=== PATIENT | male | born 1955 | race Caucasian/White ===

== ENCOUNTER 2016-09-29 15:28 | Emergency (ER) | payer OTHER ==
[~2016-09-29] VITALS: Ht 190.5 cm; Wt 109.1 kg
[~2016-09-29 15:28] MED LIST: ASPI325T32 PO; INDO25CA PO; OXYC5TAB72 PO
[2016-09-29 15:35] VITALS: BP 103/75; PULSE 90; RESP 18; O2SAT 99
[2016-09-29 15:53] VITALS: BP 123/73; PULSE 91; RESP 16; O2SAT 99
--- NOTE | 2016-09-29 16:31 | ED.REPORT ---
HPI-General Illness Date of Service Sep 29, 2016 ED Provider: Latrell Livingston MD Pt is a 60 y/o healthy male presenting to the ED from his PCP's office with multiple vague complaints onset today. The pt was planning to see his PCP Dr. Alva today to discuss right knee and left ankle pain which he attributes to gout but before he arrived, he went to a grocery store with his but decided to stay in the car because he wasn't feeling well. After his returned, he gradually became nauseous with vision changes bilaterally which he describes as flashes lights which are more concentrated in the left side. He denies any chest pain, SOB, cough, fever, chills, speech changes, focal numbness or weakness, headache, dizziness, problem walking, dark or bloody stools. At the patient's PCP visit, he was being asked questions and he apparently wasn't responding to questions appropriately causing his PCP to become concerned. His BP in his clinic was 80/60. On his way here, his symptoms have resolved and he is feeling at baseline during time of interview. He was able to walk into the ED without problems. Nursing Notes Stated Complaint: CHEST PAIN/SENT FROM DR DOUGLASS Chief Complaint: General Complaint Nursing Notes Reviewed: Yes Allergies: Coded Allergies: No Known Allergies (Verified Allergy, Unknown, 09/29/16) Scheduled Indomethacin (Indomethacin) Unknown Strength Capsule Unknown Dose PO TID Scheduled PRN oxyCODONE (oxyCODONE) 5 Mg Tablet 5 MG PO Q4H PRN PRN For Moderate Pain Miscellaneous Medications Aspirin (Aspirin) 325 Mg Tablet 325 MG PO General Time Seen by MD: 16:30 Transferred From: Private physician office Chief Complaint Multip medical complaints Hx Obtained From: Patient Arrived By: Walk-in Sudden in Onset?: Yes Onset Occurred: 5 - 8 hours ago Symptom Duration: 1 - 4 hours Severity: Current: No pain currently Severity: Maximum: No pain Recent Healthcare: Recent doctor visit Similar Sx Previous: No Past Medical History Past Medical History Hx kidney stones Gout Past Surgical History Denies Smoking History Never Smoker Social History Alcohol Use: Denies alcohol use Drug Use: Denies drug use Other Social History: Ambulatory Status Independent Review of Systems Full Review of Systems Constitutional: Denies: Chills, Fever Respiratory: Denies: Non-productive cough, Shortness of breath Cardiovascular: Denies: Chest pain GI: Reports: Nausea, Denies: Abdominal pain, Bloody/tarry stool, Diarrhea, Melena, Vomiting Neurologic: Reports: Change LOC, Vision change, Denies: Abnormal movement, Bladder dysfunction, Bowel dysfunction, Confusion , Dizziness, Focal weakness, Headache, Lightheaded, Numbness, Problem walking, Seizure, Shaking, Slurred speech, Spinning sensation, Syncope, Unable to speak Complete sys rev & neg: except as marked. Physical Exam Vital Signs Vital Signs Date Time Temp Pulse Resp B/P Pulse Ox O2 Delivery O2 Flow Rate FiO2 09/29/16 15:53 91 16 123/73 99 09/29/16 15:35 37.2 90 18 103/75 99 Room Air Initial VS: Reviewed, Vital signs normal Head / Eyes: Atraumatic, Normocephalic, PERRL ENT: Mucous membranes moist, Conjunctiva normal, No scleral icterus Neck: Supple, Full range of motion Respiratory: Breath sounds normal, Clear to auscultation, No respiratory distress Cardiovascular: Regular rate & rhythm, Heart sounds normal, Intact distal pulses Abdomen / GI: Soft, Non-tender, No guarding, No rebound, No distention Extremities: Vascular intact, Neuro intact, No swelling, No tenderness Skin: Warm, Dry, No cyanosis Psychiatric: Mood/affect normal, Behavior normal, Normal thought content General/Constitutional: Awake, Alert, No acute distress, Well appearing, Cooperative, Not toxic appearing BP while laying down: 111/66 Pulse laying down: 80 BP after standing up: 107/67 Pulse after standing up: 90 No symptoms with standing up Neurologic: Oriented X3, Speech NL, No motor deficits, No sensory deficits, CN II - XII intact, Cerebellar NL, Memory NL Interpretation & Diagnostics Lab Results Interpretation Result Diagram: 09/29/16 1630 Test 09/29/16 16:30 White Blood Count 10.1th/mm3 (3.8-10.1) Red Blood Count 4.64mil/mm3 (4.40-5.80) Hemoglobin 14.1g/dL (13.8-17.2) Hematocrit 40.9% (41.0-50.0) Mean Corpuscular Volume 88.1fL (81-100) Mean Corpuscular Hemoglobin 30.4pg (27.0-35.0) Mean Corpuscular Hemoglobin Concent 34.5% (32.0-37.0) Red Cell Distribution Width 13.2% (12.3-15.4) Platelet Count 251bil/L (150-400) Neutrophils (%) (Auto) 72.7% (40-74) Lymphocytes (%) (Auto) 14.0% (14-46) Monocytes (%) (Auto) 12.0% (4-12) Eosinophils (%) (Auto) 0.9% (0-5) Basophils (%) (Auto) 0.2% (0-3) Hold Purple Top Tube Received (Received) Hold Blue Top Tube Received (Received) Hold Red Top Tube Received (Received) Hold [place] Top Tube Received (Received) Hold [place] Top Tube Received (Received) Re-Eval/Medical Decision Med Decision/Clinical Course While I do not have any obvious reason for him to be dehydrated, nonetheless I feel that this is the source of his symptoms. His sense of lightheadedness and flashing lights all are consistent with hypotension. He has had no significant GI bleeding to his knowledge and he is only taken one dose of indomethacin so my suspicion for acute GI hemorrhage is low. He has no abdominal symptoms at all. He is not orthostatic at the bedside as I stand him up his heart rate goes up 10 points and his blood pressure stays essentially the same systolic and he has no symptoms of lightheadedness. He says he feels back to normal. Source of Hx: Old records, Family Time of Eval: 17:04 Re-Evaluation/Progress Note: Pt rechecked. Informed pt of plan for treatment. Pt understands and agrees with plan for treatment. F/U and RTER warnings given. All questions addressed. Counseled Regarding: Diagnosis, Need for follow-up, When/why to return to ED Discharge & Departure Primary Impression: Dehydration Disposition: Home Discharge Condition All VS Reviewed: Yes Condition: Stable Patient Instructions: Dehydration (ED) Additional Instructions: Your symptoms today are consistent with dehydration. I am not concerned at this point about stroke. Your physical exam is reassuring. Return to the emergency if you experience one sided numbness or weakness, severe headache, bloody or dark stools, shortness of breath, chest pain, or for other concerning symptoms. Follow-up with Dr. Alva next week for a recheck. Follow-up right away for new or worrisome symptoms. Referrals: Dandre Alva MD (PCP) Ozzie Attestation Portions of this note were transcribed by Zelalem Fontaine. I, Dr. Livingston personally performed the history, physical exam and medical decision-making; I reviewed and confirmed the accuracy of the information in the transcribed note. Signed by Ozzie Williamson, 09/29/16 - 1700 copies to: Dandre Alva MD, Kirk H MD Sep 29, 2016 16:31 ZELALEM FONTAINE Sep 29, 2016 16:49
[2016-09-29 17:15] LABS: BASOPHILS % (AUTO) 0.2 % (0-3); EOSINOPHILS % (AUTO) 0.9 % (0-5); Mean Corpuscular Hemoglobin 30.4 pg (27.0-35.0); Mean Corpuscular Volume 88.1 fL (81-100); NEUTROPHILS % (AUTO) 72.7 % (40-74); Platelet Count 251 bil/L (150-400)
[2016-09-29 17:24] VITALS: BP 117/69; PULSE 84; RESP 18; O2SAT 97
[2016-09-29 17:24] LABS: TROPONIN T < 0.010 ug/L (0.0-0.011)
[2016-09-29 17:34] LABS: Magnesium 1.9 mg/dL (1.6-2.6)
== END 2016-09-29 17:26 | disposition home or self-care (01) ==
LOC: SED 15:28
DX: E86.0 Dehydration (principal); R11.0 Nausea; H53.9 Unspecified visual disturbance; R40.0 Somnolence